=== PATIENT | male | born 1990 | race Caucasian/White ===

== ENCOUNTER 2025-08-01 10:51 | Emergency (ER) | payer OTHER, SELFPAY ==
[2025-08-01 10:52] VITALS: BP 121/69; PULSE 77; RESP 18; TEMP 36.8; O2SAT 100; BMI 33.3
--- NOTE | 2025-08-01 11:10 | CT_ITS ---
PROCEDURE: ABDOMEN/PELVIS W IV CONT ONLY 08/01/2025 REASON FOR EXAM: RLQ PAIN 2 day history of right lower quadrant pain. TECHNIQUE: Procedure Code: [id number] Modality: CT Procedure: ABDOMEN/PELVIS W IV CONT ONLY Coronal and Sagittal reconstruction series were provided. CONTRAST: Isovue-300 VOLUME: 100 mL One or more dose reduction techniques were used (e.g., Automated exposure control, adjustment of the mA and/or kV according to patient size, use of iterative reconstruction technique. RADIATION DOSE SUMMARY: CTDlvol: 12.13 mGy DLP: 663.44 mGycm COMPARISON: None FINDINGS: Lung bases: The lung bases are clear. Liver: Diffuse fatty infiltration. Gallbladder: Unremarkable Spleen: Normal size. Pancreas: Normal size without evidence of mass surrounding inflammation or ductal dilation. Adrenals: Unremarkable Kidneys: Normal renal sizes. No hydronephrosis. Bladder: Unremarkable Small umbilical hernia containing fat. Bowel: Unremarkable Appendix: Unremarkable Lymph nodes: No suspicious lymph node enlargement. Vasculature: The abdominal aorta and IVC are normal. Peritoneum / Retroperitoneum: Unremarkable Bones: Unremarkable CT/Abdomen/Pelvis W IV Cont ONLY IMPRESSION: Fatty infiltration of the liver. Small umbilical hernia containing fat. Reading Location: [place] [id number]
--- NOTE | 2025-08-01 11:10 | EX.ED.DYSGE1 ---
HPI History of Present Illness Chief Complaint: Abd Pain Narrative Narrative: Patient is a 34-year-old male with no known significant past medical history who presents to the emergency department the chief complaint of right sided abdominal pain. He states that his pain started about 2 days ago and he states that earlier today when he pushed on the area he developed extreme pain almost causing him to pass out. He denies any injuries denies bending over or picking up anything heavy. He states that he does not have a testicle pain. PFSH PFSH Home Medications ?Medication ?Instructions ?Recorded ?Last Taken ?Type dicyclomine 20 mg tablet 20 mg PO TID PRN abdominal pain 08/01/25 Unknown Rx #20 tabs ondansetron 4 mg disintegrating 4 mg PO Q6H PRN nausea and 08/01/25 Unknown Rx tablet vomiting #20 tabs Allergy/AdvReac Type Severity Reaction Status Date / Time Penicillins (PCN) Allergy Mild rash Verified 08/01/25 10:52 Social History Smoking Status: Never smoker ROS ROS ED ROS Narrative Constitutional: Denies any fevers or chills Eyes: Denies double vision Cardiovascular: Denies chest pain Respiratory: No shortness of breath Abdomen: Complains of abdominal pain as noted above denies any nausea vomiting : Denies urinary symptoms Neurological: Denies numbness, weakness, tingling Musculoskeletal: Denies back pain Skin: Denies any rashes or lesions EXAM Physical Exam Narrative Exam Narrative: General: Patient was lying bed rest comfortably did not appear to be in acute distress Head: Atraumatic, normocephalic Eyes: PERRL bilaterally, EOMI bilaterally Neck: Soft, supple, trachea midline Cardiovascular: Regular rate and rhythm Abdomen: Soft, nondistended, tenderness to palpation of right lower quadrant no rebound or guarding on exam Extremities: +5/5 strength noted in the bilateral lower extremities Neurological: Patient following commands and that he was at [facility] the year is 2024 Skin: Warm, dry, intact no rashes or lesions noted Const Vital Signs: 08/01/25 10:52 Temperature 98.2 F Temperature Source Oral Pulse Rate 77 Respiratory Rate 18 Blood Pressure 121/69 H Blood Pressure Mean 86 Pulse Ox 100 Oxygen Delivery Method Room Air MDM MDM MDM Narrative Medical decision making narrative: Patient is a 34-year-old male who presented to the emergency department the chief complaint of abdominal pain. On the differential diagnose includes but not limited to appendicitis, bowel obstruction, viral gastroenteritis, constipation. Once the workup is obtained and reviewed he will be reevaluated. Patient will get IV fluids morphine Zofran. Patient CBC reviewed and showed no evidence leukocytosis white blood count one 7.7, hemoglobin 15.3, plate count normal at 211. Patient odium is 130, potassium normal 4.5, creatinine is normal 1.09. Patient AST and ALT are 30 and 44 respectively lipase normal at 23. Patient CT ab and pelvis with IV contrast was reviewed which showed fatty infiltration of the liver a small umbilical hernia containing fat. Discussed results with the patient he would like to go home at this point in time. He was referred to general surgery to follow-up on the umbilical hernia. I did notify him there is a chance that he could be passing a kidney stone given the symptomology that he is currently experiencing however if this is the case it is small enough that it will pass on its own. He is vies follow-up with his doctor in outpatient and return with worsening symptoms or concerns. He is agreeable this plan all question concerns answered he is discharged home in stable condition Lab Data Labs: Laboratory Results - last 24 hr 08/01/25 11:20 WBC 7.7 RBC 4.92 Hgb 15.3 Hct 43.2 MCV 87.8 MCH 31.1 MCHC 35.4 RDW Std Deviation 39.9 RDW Coeff of Mendez 12.5 Plt Count 211 MPV 10.5 Immature Gran % (Auto) 0.400 Neut % (Auto) 64.7 Lymph % (Auto) 24.5 [place] % (Auto) 9.0 Eos % (Auto) 0.9 Baso % (Auto) 0.5 Absolute Neuts (auto) 5.0 Absolute Lymphs (auto) 1.88 Nucleated RBC % 0 Sodium 138 Potassium 4.5 Chloride 103 Carbon Dioxide 26.6 Anion Gap 9 BUN 21 H Creatinine 1.09 Estim Creat Clear Calc 110.20 Est GFR (MDRD) Non-Af 92 BUN/Creatinine Ratio 19.6 Glucose 85 Calcium 9.4 Total Bilirubin 1.28 AST 30 ALT 44 Alkaline Phosphatase 68 Total Protein 7.2 Albumin 4.7 Globulin 2.5 Albumin/Globulin Ratio 1.8 Lipase 23 Radiography Diagnostic Testing: Clinical Impression(s) from Imaging Studies Abdomen/Pelvis CT 08/01/25 11:10 IMPRESSION: Fatty infiltration of the liver. Small umbilical hernia containing fat. Reading Location: [place] [address] Discharge Plan Triage Chief Complaint: Abd Pain ED Provider: Zen Small Dx/Rx/DC Orders Clinical Impression: Abdominal pain, Hernia, umbilical, Encounter for medical screening examination Prescriptions: New dicyclomine 20 mg tablet 20 mg PO TID PRN (Reason: abdominal pain) Qty: 20 0RF ondansetron 4 mg tablet,disintegrating 4 mg PO Q6H PRN (Reason: nausea and vomiting) Qty: 20 0RF Primary Care Provider: HAIM BERNARDO Referrals: NOT,DEFINED [Non-Staff, None] Jeff Mardigal MD [Med Staff - Tax Services Manager, Family Practice] Aurea Christie MD [Med Staff - Active Staff, General Surgery] Activity Restrictions/Additional Instructions: Follow-up with your doctors you are referred to. Use prescriptions that were sent to your pharmacy as prescribed. Return with worsening symptoms or any other concerns. Your CT did not show any acute surgical findings today. There was an incidental finding of an umbilical hernia they can follow-up with the surgeon that you referred to as well on. Print Language: [place] Disposition Disposition: Home, Self Care
[2025-08-01] MEDS: 0.9% Normal Saline (1000mL) 1,000 ML 999 ML IV (11:16)
[2025-08-01 11:34] LABS: Hematocrit 43.2 % (40-54); Hemoglobin 15.3 g/dL (13.0-16.5); Immature Granulocytes Count 0.030 X10^3/uL (0.0-0.0); Mean Corp Hgb Conc 35.4 g/dL (32-36); Mean Corpuscular Volume 87.8 fL (80-94); Mean Platelet Vol. 10.5 fl (6.2-12.0); NRBC Flagged by Analyzer 0 % (0-5); Platelet Count 211 K/mm3 (150-450); RBC Distribution Width CV 12.5 % (11.6-14.6); RBC Distribution Width SD 39.9 fl (35.1-43.9); Red Blood Count 4.92 M/mm3 (4.6-6.2); White Blood Count 7.7 K/mm3 (4.4-11.0)
[2025-08-01 11:56] LABS: AST(SGOT) 30 U/L (<=37); Alanine Aminotransfer ALT/SGPT 44 U/L (<=46); Albumin, Serum 4.7 g/dL (3.5-5.0); Alkaline Phosphatase 68 U/L (40-129); Anion Gap 9 (5-15); BUN 21 mg/dL (4-19); BUN/Creat Ratio 19.6 RATIO (10-20); Calcium,Total 9.4 mg/dL (7.6-11.0); Carbon Dioxide 26.6 mmol/L (21.0-32.0); Chloride 103 mmol/L (98-108); Estimated Creatinine Clearance 110.20 ml/min (50-250); Globulin 2.5 g/dL (2.2-4.2); Glucose 85 mg/dL (70-99); Lipase 23 U/L (13-75); Potassium 4.5 mmol/L (3.3-5.1)
[2025-08-01] MEDS: Ketorolac 30 MG/ML Syringe IV (12:19)
[2025-08-01 12:32] VITALS: BP 124/78; PULSE 72; RESP 18; TEMP 36.6; O2SAT 99
== END 2025-08-01 12:51 | disposition home or self-care (01) ==
PROVIDERS: Emergency Provider Emergency Medicine; PCP Student in an Organized Health Care Education/Training Program; Visit Provider Emergency Medicine
DX: R10.9 Unspecified abdominal pain (principal); K42.9 Umbilical hernia without obstruction or gangrene; Z13.9 Encounter for screening, unspecified
CPT/HCPCS: 74177; 80053; 83690; 85025; 96361; 96374; 96375; 99283; Q9967; J2405